=== PATIENT | female | born 1960 | race Caucasian/White ===

== ENCOUNTER 2023-04-20 10:14 | Day surgery (SDC) | payer BC ==
[~2023-04-20] VITALS: Ht 175.3 cm; Wt 107.0 kg
[2023-04-20] VITALS (12 sets, daily range): BP systolic 139–269; BP diastolic 67–155; PULSE 77–135; RESP 16–31; TEMP 97.9; O2SAT 92–97
[2023-04-20] MEDS ORDERED: CYAN-116 (10:47)
[2023-04-20] MEDS ORDERED: ARA20T PO (10:47)
[2023-04-20] MEDS ORDERED: ASCO100031 PO (10:47)
[2023-04-20] MEDS ORDERED: OMEP20TA23 PO (10:47)
[2023-04-20] MEDS ORDERED: CHOL20002 PO (10:47)
[2023-04-20] MEDS ORDERED: HYDR200T73 PO (10:47)
[2023-04-20] MEDS ORDERED: SACU1TAB4 PO (10:47)
[2023-04-20] MEDS ORDERED: IPRA3AMP31 NEB (10:47)
[2023-04-20] MEDS ORDERED: normal saline 1000ml 1,000 ML IV SCH (10:55)
[2023-04-20] MEDS ORDERED: fentaNYL/PF 50MCG/1 ML 2ML syringe IV ONE (10:55)
[2023-04-20] MEDS ORDERED: MIDAZolam 1mg/ml 10ml vial IV ONE (10:55)
== END 2023-04-20 14:00 | disposition home or self-care (01) ==
LOC: SSTAY O 10:14
PROVIDERS: ATTEND Student in an Organized Health Care Education/Training Program
DX: R94.31 Abnormal electrocardiogram [ECG] [EKG] (principal); I11.0 Hypertensive heart disease with heart failure; I50.9 Heart failure, unspecified; G47.33 Obstructive sleep apnea (adult) (pediatric); J44.9 Chronic obstructive pulmonary disease, unspecified; M06.9 Rheumatoid arthritis, unspecified; Z90.5 Acquired absence of kidney; Z85.528 Personal history of other malignant neoplasm of kidney; Z79.899 Other long term (current) drug therapy
CPT/HCPCS: 93312; 93325; J2250; J3010; J7030; 96360; A4620